=== PATIENT | female | born 1980 ===

== ENCOUNTER 2023-09-14 10:23 | Outpatient (REF) | payer OTHER, SELFPAY ==
--- NOTE | ~2023-09-14 | US_ITS ---
EXAMINATION: US PELVIS COMPLETE CLINICAL INFORMATION: Interosseous; history of endometrial polypectomies in 2022; the last menstrual period was one week prior. COMPARISON: None. TECHNIQUE: Transabdominal an transvaginal imaging were performed. FINDINGS: The uterus is of normal size and somewhat heterogeneous in echogenicity, measuring 9.4 x 4.5 x 5.7 cm. The uterus is anteverted. A regular homogeneous endometrium is identified measuring 0.7 cm. FIBROIDS: There are 3 fibroids seen. 1. Location: Posterior body, subserosal. Size: 2.5 x 2.0 x 2.5 cm. Fibroid characteristics: Heterogeneously hypoechoic. 2. Location: Upper leftward body, myometrial. Size: 0.6 x 0.7 x 0.6 cm. Fibroid characteristics: Hypoechoic. 3. Location: Upper leftward body, myometrial. Size: 0.7 x 0.5 x 0.8 cm. Fibroid characteristics: Hypoechoic. 4. Location: Anterior upper body, myometrial. Size: 2.5 x 2.1 x 2.3 cm. Fibroid characteristics: Isoechoic. Both ovaries are of normal size and echogenicity. [The ovaries show normal doppler flow.] The right ovary measures 2.2 x 1.4 x 1.5 cm for a volume of 2.4 mL. The left ovary measures 3.9 x 2.9 x 3.1 cm for a volume of 18.0 mL. The left ovary contains a 2.3 cm benign, simple follicle, for which no imaging follow-up is recommended. There is a small amount of nonspecific free fluid in the cul-de-sac. No adnexal mass is seen. US/US pelvic and transvaginal IMPRESSION: 1. Multiple uterine fibroids are seen. 2. No endometrial polyp is presently noted. 3. There is a small amount of nonspecific free fluid in the cul-de-sac.
== END 2023-09-14 10:24 | disposition home or self-care (01) ==
LOC: HO.UMASIMG 10:23
PROVIDERS: Visit Provider Nurse Practitioner Women's Health
DX: N92.0 Excessive and frequent menstruation with regular cycle (principal)
CPT/HCPCS: 76830; 76856